=== PATIENT | female | born 1975 | race Caucasian/White ===

== ENCOUNTER 2016-10-19 19:49 | Inpatient (IN) | payer OTHER ==
[~2016-10-19] VITALS: Ht 154.9 cm; Wt 68.1 kg
[~2016-10-19 19:49] MED LIST: ESG PO; IMI6I PO
[2016-10-19 21:36] LABS: BASOPHIL % 0.4 % (0-2); PLATELET COUNT 265 x10^3mcL (130-400); RED CELL DISTRIBUTION WIDTH 12.3 % (11.5-14.5)
[2016-10-19 21:38] LABS: CALCIUM 9.7 mg/dL (8.5-10.1); CARBON DIOXIDE 27.8 mmol/L (21-32); CHLORIDE SERUM 100 mmol/L (98-107); CREATININE SERUM 0.7 mg/dL (0.6-1.0); GFR1 > 60 mL/min; GLUCOSE SERUM 93 mg/dL (74-106); POTASSIUM SERUM 3.5 mmol/L (3.5-5.1); SODIUM SERUM 136 mmol/L (136-145)
[2016-10-19 21:42] LABS: ALBUMIN 4.5 g/dL (3.4-5.0); ALKALINE PHOSPHATASE 275 U/L (46-116); ALT/SGPT 385 U/L (14-59); AST/SGOT 630 U/L (15-37); BILIRUBIN TOTAL 1.25 mg/dL (0.20-1.00); LIPASE 183 IU/L (73-393); TRIGLYCERIDES 51 mg/dL (<150)
[2016-10-19 21:43] LABS: CHOLESTEROL 220 mg/dL (<200); HDL CHOLESTEROL 73 mg/dL (40-60); TOTAL PROTEIN, SERUM 8.3 g/dL (6.4-8.2)
[2016-10-19 22:03] LABS: FREE T4 1.75 ng/dL (0.76-1.46)
[2016-10-19 22:06] LABS: FREE THYROXINE INDEX 5.2 ug/dL (1.4-4.5)
[2016-10-19 22:10] LABS: T3 TOTAL 1.3 ng/mL
[2016-10-20 00:25] VITALS: BP 136/85
[2016-10-20 00:29] LABS: microscopic required? NO
[2016-10-20 00:31] VITALS: Ht 154.9 cm; Wt 68.1 kg
[2016-10-20 00:37] LABS: urine erythrocyte NEGATIVE (NEGATIVE)
[2016-10-20 00:46] LABS: AMPHETAMINE QUAL UR NONE DETECTED (NEG <=1000)
[2016-10-20] MEDS ORDERED: IMITREX25 MG PO (01:50)
[2016-10-20 05:56] VITALS: BP 114/72
[2016-10-20 06:22] LABS: BASOPHIL % 0.7 % (0-2); PLATELET COUNT 191 x10^3mcL (130-400); RED CELL DISTRIBUTION WIDTH 12.4 % (11.5-14.5)
[2016-10-20 06:47] LABS: CALCIUM 8.4 mg/dL (8.5-10.1); CARBON DIOXIDE 26.1 mmol/L (21-32); CHLORIDE SERUM 106 mmol/L (98-107); CREATININE SERUM 0.8 mg/dL (0.6-1.0); GFR1 > 60 mL/min; GLUCOSE SERUM 68 mg/dL (74-106); MAGNESIUM 2.3 mg/dL (1.8-2.4); PHOSPHOROUS 2.8 mg/dL (2.5-4.9); POTASSIUM SERUM 4.2 mmol/L (3.5-5.1); SODIUM SERUM 139 mmol/L (136-145)
[2016-10-20 09:50] VITALS: BP 134/86
[2016-10-20 13:50] VITALS: BP 105/75
[2016-10-20 17:50] VITALS: BP 123/86
[2016-10-20 21:21] VITALS: BP 118/77
[2016-10-21 05:20] VITALS: BP 122/78
[2016-10-21 06:09] LABS: BASOPHIL % 0.9 % (0-2); PLATELET COUNT 182 x10^3mcL (130-400); RED CELL DISTRIBUTION WIDTH 12.3 % (11.5-14.5)
[2016-10-21 06:35] LABS: CALCIUM 8.4 mg/dL (8.5-10.1); CARBON DIOXIDE 25.9 mmol/L (21-32); CHLORIDE SERUM 109 mmol/L (98-107); CREATININE SERUM 0.7 mg/dL (0.6-1.0); GFR1 > 60 mL/min; GLUCOSE SERUM 78 mg/dL (74-106); MAGNESIUM 1.7 mg/dL (1.8-2.4); PHOSPHOROUS 3.2 mg/dL (2.5-4.9); POTASSIUM SERUM 3.8 mmol/L (3.5-5.1); SODIUM SERUM 140 mmol/L (136-145)
[2016-10-21 09:21] LABS: BILIRUBIN DIRECT 0.2 mg/dL (0.0-0.2); BILIRUBIN TOTAL 0.55 mg/dL (0.20-1.00)
[2016-10-21 09:22] LABS: ALBUMIN 3.1 g/dL (3.4-5.0); TOTAL PROTEIN, SERUM 5.9 g/dL (6.4-8.2)
[2016-10-21 10:55] VITALS: BP 122/83
[2016-10-21 17:09] VITALS: BP 141/93
[2016-10-21 21:53] VITALS: BP 136/90
[2016-10-21 21:54] VITALS: BP 136/90
[2016-10-22 05:29] LABS: BASOPHIL % 0.5 % (0-2); PLATELET COUNT 184 x10^3mcL (130-400); RED CELL DISTRIBUTION WIDTH 12.4 % (11.5-14.5)
[2016-10-22 05:48] LABS: CALCIUM 8.5 mg/dL (8.5-10.1); CARBON DIOXIDE 24.9 mmol/L (21-32); CHLORIDE SERUM 107 mmol/L (98-107); CREATININE SERUM 0.6 mg/dL (0.6-1.0); GFR1 > 60 mL/min; GLUCOSE SERUM 89 mg/dL (74-106); MAGNESIUM 1.5 mg/dL (1.8-2.4); POTASSIUM SERUM 3.4 mmol/L (3.5-5.1); SODIUM SERUM 141 mmol/L (136-145)
[2016-10-22 06:02] VITALS: BP 128/87
[2016-10-22] MEDS ORDERED: BIA500 PO (08:55)
[2016-10-22] MEDS ORDERED: AMO500 PO (08:55)
[2016-10-22] MEDS ORDERED: LAC PO (08:56)
[2016-10-22] MEDS ORDERED: PRI20 PO (08:56)
[2016-10-22] MEDS ORDERED: ELA10 PO (08:56)
[2016-10-22 09:23] VITALS: BP 128/87
== END 2016-10-22 10:10 | disposition home or self-care (01) ==
LOC: ED 19:49 → MU 23:27 → DU 23:27 → MU 10-20 16:33
PROVIDERS: Family Medicine; Internal Medicine Gastroenterology; Specialist; ADMIT Family Medicine
PROC: 0F798DZ Dilation of Common Bile Duct with Intraluminal Device, Via Natural or Artificial Opening Endoscopic (ICD-10-PCS; principal; 2016-10-21 09:00)
PROC: BF101ZZ Fluoroscopy of Bile Ducts using Low Osmolar Contrast (ICD-10-PCS; 2016-10-21 09:00)
PROC: 0DB68ZX Excision of Stomach, Via Natural or Artificial Opening Endoscopic, Diagnostic (ICD-10-PCS; 2016-10-21 09:00)
DX: K83.4 Spasm of sphincter of Oddi (principal); E46 Unspecified protein-calorie malnutrition; E83.42 Hypomagnesemia; E83.51 Hypocalcemia; I16.0 Hypertensive urgency; E78.5 Hyperlipidemia, unspecified; Z68.28 Body mass index [BMI] 28.0-28.9, adult; D64.9 Anemia, unspecified; K21.9 Gastro-esophageal reflux disease without esophagitis; E87.6 Hypokalemia; Z90.49 Acquired absence of other specified parts of digestive tract; K80.50 Calculus of bile duct without cholangitis or cholecystitis without obstruction
CPT/HCPCS: 43262; 78226; 80307; 83880; 84439; A9537; C1769; C2625; J0295; J1610; J1885; J2250; J2405; J3010; J7030; J7120; Q0092; Q0162; Q9967

== ENCOUNTER 2017-11-20 12:16 | Emergency (ER) | payer OTHER ==
[~2017-11-20] VITALS: Ht 154.9 cm; Wt 67.1 kg
[~2017-11-20 12:16] MED LIST changes: +AMO500 PO; +BIA500 PO; +ELA10 PO; +IMITREX25 MG PO; +LAC PO; +PRI20 PO
[2017-11-20 12:24] VITALS: Ht 154.9 cm; Wt 67.1 kg
[2017-11-20 14:19] VITALS: BP 135/77
== END 2017-11-20 14:19 | disposition home or self-care (01) ==
LOC: ED 12:16
DX: G43.909 Migraine, unspecified, not intractable, without status migrainosus (principal); I10 Essential (primary) hypertension

== ENCOUNTER 2017-11-20 17:55 | Emergency (ER) | payer OTHER ==
[~2017-11-20] VITALS: Ht 154.9 cm; Wt 67.6 kg
[2017-11-20 18:33] VITALS: Ht 154.9 cm; Wt 67.6 kg
[2017-11-20 22:03] VITALS: BP 136/89
== END 2017-11-20 22:03 | disposition home or self-care (01) ==
LOC: ED 17:55
DX: G43.909 Migraine, unspecified, not intractable, without status migrainosus (principal); R11.0 Nausea; I10 Essential (primary) hypertension

== ENCOUNTER 2018-03-30 20:18 | Emergency (ER) | payer OTHER ==
[~2018-03-30] VITALS: Ht 157.5 cm; Wt 63.0 kg
[2018-03-30 20:37] VITALS: Ht 157.5 cm; Wt 63.0 kg
[2018-03-30 23:30] VITALS: BP 117/75
== END 2018-03-30 23:30 | disposition home or self-care (01) ==
LOC: ED 20:18
DX: G43.909 Migraine, unspecified, not intractable, without status migrainosus (principal); H66.91 Otitis media, unspecified, right ear; I10 Essential (primary) hypertension
CPT/HCPCS: J1100; J1885; J2270; J2765; J7030

== ENCOUNTER 2019-05-03 08:39 | Emergency (ER) | payer OTHER ==
[~2019-05-03] VITALS: Ht 154.9 cm; Wt 65.3 kg
[2019-05-03 08:50] VITALS: Ht 154.9 cm; Wt 65.3 kg
[2019-05-03 10:50] VITALS: BP 128/84
== END 2019-05-03 10:50 | disposition home or self-care (01) ==
LOC: ED 08:39
DX: G43.909 Migraine, unspecified, not intractable, without status migrainosus (principal); R11.0 Nausea; H53.149 Visual discomfort, unspecified; I10 Essential (primary) hypertension